=== PATIENT | male | born 1970 | race Two or more races ===

== ENCOUNTER 2017-11-09 12:43 | Emergency (ER) | payer OTHER ==
[~2017-11-09] VITALS: Ht 170.2 cm; Wt 81.6 kg
--- NOTE | 2017-11-09 13:25 | Emergency Room Report ---
History of Present Illness General Chief Complaint: Laceration Source: Patient Present Illness HPI 47-year-old male patient presents to ER complaining of laceration on right side of face. Patient is a Workmen's Compensation case. Patient was at work pulling out metal sheets whenever she eats pulled back towards his face and cut him. Bleeding well controlled with gauze at this time. Patient does not know tetanus vaccination status. Patient denies loss of consciousness or vision changes. Denies eye involvement. Denies fever, chest pain, shortness of breath. Allergies: Coded Allergies: No Known Allergies (Unverified , 11/09/17) Patient History Past Medical History: see triage record Reviewed Nursing Documentation: PMH: Agreed; PSxH: Agreed Nursing Documentation-PMH Past Medical History: No Stated History Review of Systems All Other Systems: negative except mentioned in HPI Physical Exam Vital Signs Date Time Temp Pulse Resp B/P (MAP) Pulse Ox O2 Delivery O2 Flow Rate FiO2 11/09/17 12:59 99.0 69 20 172/106 97 Room Air 99.0 Sp02 EP Interpretation: reviewed, normal General Appearance: well appearing, no apparent distress, alert, GCS 15, non- toxic Head: normocephalic, atraumatic Eyes: bilateral eye normal inspection, bilateral eye PERRL ENT: hearing grossly normal, normal pharynx, no angioedema, normal voice, uvula midline, moist mucus membranes Neck: full range of motion Respiratory: lungs clear, normal breath sounds, no rhonchi, no respiratory distress, no accessory muscle use, no wheezing, speaking full sentences Cardiovascular #1: regular rate, rhythm, no edema Gastrointestinal: non tender, soft, no mass, non-distended, no guarding, no rebound Musculoskeletal: back normal, digits/nails normal, gait/station normal, normal range of motion, non-tender Neurologic: alert, oriented x3, responsive, motor strength/tone normal, sensory intact Psychiatric: mood/affect normal Skin: laceration - ammeter superficial laceration on right side of her face from forehead to cheek, avoids eye involvement, bleeding well controlled with gauze, mild to moderate superficial involvement Medical Decision Making PA Attestation Dr. Hester is my supervising Physician whom patient management has been discussed with. Diagnostic Impression: Primary Impression: Laceration ER Course Pt presents to ED c/o laceration on face. DDX considered but are not limited to laceration, abrasion, contusion, cellulitis. denies loss consciousness, no focal neuro deficits, cranial nerves intact as tested, does not require imaging of the head at this time. VITAL SIGNS are WNL, patient is afebrile ED INTERVENTIONS: patient laceration right side of face, patient able to smile and wrinkle forehead, due to location and extent of injury, we will consult with Dr. Rizo for repair of injury. Dr. Rizo graciously agreed to provide consultation on this case. Wound was cleaned and irrigated using copious normal saline. patient with pain medication and topical LET for pain symptoms. see Dr. Rizo procedure note for laceration repair. consult with Dr. Rizo, will provide patient with topical and oral antibiotics and discharged home. Provide patient Motrin for pain relief. Followup with Dr. Rizo for wound check and suture removal in 5-7 days. ER precautions given .Patient reports understanding and agreement to treatment plan. Keep wound clean and dry. Workmen's Compensation paperwork completed. DISCHARGE: Rx provided for Keflex Rx provided for Bacitracin Rx provided for Motrin At this time pt is stable for d/c to home. Patient resting comfortably, in no acute distress, nontoxic appearing, talking without difficulty. Will provide with patient care instructions and any necessary prescriptions. Patient to take medication as instructed. Care plan and follow-up instructions provided. Work note provided to patient. Patient questions asked and answered. Patient instructed to follow-up with primary care provider for wound check and suture removal. ER precautions given. Patient instructed to return to ER immediately for any new or worsening of symptoms. - Please note that this Emergency Department Report was dictated using [employer] weather stripper technology software, occasionally this can lead to erroneous entry secondary to interpretation by the dictation equipment. Last Vital Signs Date Time Temp Pulse Resp B/P (MAP) Pulse Ox O2 Delivery O2 Flow Rate FiO2 11/09/17 12:59 99.0 69 20 172/106 97 Room Air 99.0 Status: improved Disposition: HOME, SELF-CARE Condition: Stable Scripts Ibuprofen* (MOTRIN*) 600 Mg Tablet 600 MG ORAL Q6H PRN for For Pain, #30 TAB Prov: Mak Pina P.A. 11/09/17 Cephalexin* (KEFLEX*) 500 Mg Capsule 500 MG ORAL EVERY 12 HOURS, #14 CAP 0 Refills Prov: Mak Pina 11/09/17 Bacitracin/Polymyxin B Sulfate (BACITRACIN-POLYMYXIN OINTMENT) 28.35 Gm Oint...g. 1 APPLIC TP BID, #28 GM Prov: Mak Pina 11/09/17 Patient Instructions: Facial Laceration Additional Instructions: Patient instructed to follow-up with Dr. Rizo for wound check and suture removal in 6-7 days. Call to schedule appointment. Take medications as directed. Keep wound clean and dry. Patient questions asked and answered. ER precautions given, patient instructed to return to ER immediately for any new or worsening of symptoms. Mak Pina Nov 09, 2017 13:25
[2017-11-09] MEDS ORDERED: Bacitracin Oint UD TOPIC ONE (13:30)
[2017-11-09] MEDS ORDERED: Tetanus/Diptheria/Pertussis Vaccine 0.5ml Syr IM ONE (13:30)
[2017-11-09] MEDS ORDERED: Ketorolac 30mg Inj IM ONE (13:30)
[2017-11-09] MEDS ORDERED: LET 3ml Soln TOPIC ONE (13:30)
[2017-11-09 15:00] VITALS: BP 172/106
[2017-11-09] MEDS ORDERED: Lidocaine 1% 10mg/ml/Epi 0.005mg/ml 30ml vial INJ ONE (16:00)
[2017-11-09] MEDS ORDERED: CEPHALEXIN500 MG ORAL (16:39)
[2017-11-09] MEDS ORDERED: BACITRACIN-P28.35 GM TP (16:39)
[2017-11-09] MEDS ORDERED: IBUPROFEN600 MG ORAL (16:39)
[2017-11-09 16:47] VITALS: BP 145/93
== END 2017-11-09 16:41 | disposition home or self-care (01) ==
LOC: EMR 14:15
DX: S01.81XA Laceration without foreign body of other part of head, initial encounter (principal); W26.8XXA Contact with other sharp object(s), not elsewhere classified, initial encounter; Z23 Encounter for immunization; Y93.89 Activity, other specified; Y92.89 Other specified places as the place of occurrence of the external cause; Y99.0 Civilian activity done for income or pay
CPT/HCPCS: 90471; 90715; 96372; 99283; J1885